=== PATIENT | female | born 1950 | race Caucasian/White ===

== ENCOUNTER 2023-07-02 09:51 | Emergency (ER) | payer MEDICARE, BC, MEDICAID ==
[~2023-07-02] VITALS: Ht 154.9 cm; Wt 79.0 kg
[2023-07-02 12:08] LABS: BASOPHILS # (AUTO) 0.2 X10'3 (0-0.2); EOSINOPHILS # (AUTO) 0.6 X10'3 (0-0.9); EOSINOPHILS % (AUTO) 6.5 % (0-6); HEMATOCRIT 35.2 % (35.0-45.0); HEMOGLOBIN 11.6 g/dl (12.0-16.0); LYMPHOCYTES # (AUTO) 1.5 X10'3 (1.1-4.8); LYMPHOCYTES % (AUTO) 17.1 % (21-51); MEAN CORPUSCULAR HEMOGLOBIN 29.3 PG (27.0-31.0); MEAN CORPUSCULAR HGB CONC 33.1 g/dL (33.0-36.5); MEAN CORPUSCULAR VOLUME 88.7 FL (78-98); MEAN PLATELET VOLUME 8.3 FL (7.4-10.4); MONOCYTES # (AUTO) 0.4 X10'3 (0-0.9); MONOCYTES % (AUTO) 4.2 % (2-12); NEUTROPHILS % (AUTO) 70.2 % (42-75); PLATELET COUNT 296 X10'3 (140-440); RED BLOOD COUNT 3.96 X10'6 (4.20-5.60); RED CELL DISTRIBUTION WIDTH 14.7 % (11.5-14.5); WHITE BLOOD COUNT 8.6 X10'3 (4.5-11.0)
[2023-07-02 12:25] LABS: ALANINE AMINOTRANSFERASE 23 U/L (12-78); ALBUMIN 3.4 G/DL (3.4-5.0); ALKALINE PHOSPHATASE 88 IU/L (46-116); ANION GAP 13 (8-16); ASPARTATE AMINO TRANSFERASE 17 U/L (10-37); BILIRUBIN,DIRECT 0.1 MG/DL (0-0.3); BILIRUBIN,TOTAL 0.3 MG/DL (0.1-1.0); BLOOD UREA NITROGEN 27 MG/DL (7-18); BUN/CREATININE RATIO 21.8 (10.0-20.0); CALCIUM 8.9 MG/DL (8.5-10.1); CHLORIDE 110 MMOL/L (99-107); CREATININE 1.24 MG/DL (0.40-0.90); GLUCOSE 143 MG/DL (70-104); MAGNESIUM 2.7 MG/DL (1.5-2.4); POTASSIUM 5.1 MMOL/L (3.5-5.1); SODIUM 145 MMOL/L (135-145); TOTAL CARBON DIOXIDE 22.3 MMOL/L (24-32); TOTAL PROTEIN 6.8 G/DL (6.4-8.2); eCRCL 32 ML/MIN; eGFR 43 ML/MIN
[2023-07-02] MEDS ORDERED: iohexol 300mg/ml 100ml inj. ONE (15:41)
[2023-07-02] MEDS ORDERED: HYDR-3965 PO (15:53)
[2023-07-02] MEDS ORDERED: CEPH-585 PO (15:53)
[2023-07-02 16:28] VITALS: BP 132/68; PULSE 78; RESP 16; TEMP 98; O2SAT 97
[2023-07-02] MEDS: CefTRIAXone 1000mg IM Kit (w/lidocaine diluent) IM ONE (16:28)
== END 2023-07-02 16:29 | disposition home or self-care (01) ==
LOC: ER 09:53
DX: S61.431D Puncture wound without foreign body of right hand, subsequent encounter (principal); Z91.041 Radiographic dye allergy status; W25.XXXD Contact with sharp glass, subsequent encounter
CPT/HCPCS: 36415; 73201; 80048; 80076; 83605; 83735; 84145; 85025; 87040; 96372; 99285; J0696; J3490; Q9967; 90471

== ENCOUNTER 2023-07-29 10:14 | Emergency (ER) | payer MEDICARE, MEDICAID ==
[~2023-07-29] VITALS: Ht 154.9 cm; Wt 78.4 kg
[~2023-07-29 10:14] MED LIST: HYDR-3965 PO
[2023-07-29 11:21] LABS: BILIRUBIN,URINE NEGATIVE (Neg); CLARITY,URINE SLIGHTLY CLOUDY (Clear); COLOR,URINE YELLOW (Yellow); GLUCOSE, URINE NEGATIVE (Neg); KETONES,URINE NEGATIVE (Neg); LEUKOCYTE ESTERASE ,URINE TRACE (Neg); NITRITES, URINE NEGATIVE (Neg); OCCULT BLOOD,URINE TRACE-INTACT (Neg); PROTEIN,URINE >=300 mg/dl (Neg); UROBILINOGEN,URINE 0.2 E.U/dL (0.2-1.0)
[2023-07-29 11:31] LABS: UA COLLECTION TYPE CLN CATCH MIDSTREAM
[2023-07-29 11:32] LABS: SQUAMOUS EPITHELIAL CELL,UR FEW /LPF (FEW)
[2023-07-29 11:33] LABS: BACTERIA,URINE FEW /HPF (Neg); RBC,URINE 0-2 /HPF (0-2)
[2023-07-29 12:26] LABS: BASOPHILS # (AUTO) 0.1 X10'3 (0-0.2); BASOPHILS % (AUTO) 0.8 % (0-1); EOSINOPHILS # (AUTO) 0.3 X10'3 (0-0.9); EOSINOPHILS % (AUTO) 3.8 % (0-6); HEMATOCRIT 36.2 % (35.0-45.0); HEMOGLOBIN 11.9 g/dl (12.0-16.0); LYMPHOCYTES # (AUTO) 1.9 X10'3 (1.1-4.8); LYMPHOCYTES % (AUTO) 22.9 % (21-51); MEAN CORPUSCULAR HGB CONC 32.8 g/dL (33.0-36.5); MEAN CORPUSCULAR VOLUME 88.6 FL (78-98); MEAN PLATELET VOLUME 8.5 FL (7.4-10.4); MONOCYTES # (AUTO) 0.4 X10'3 (0-0.9); MONOCYTES % (AUTO) 4.7 % (2-12); NEUTROPHILS # (AUTO) 5.6 X10'3 (1.8-7.7); NEUTROPHILS % (AUTO) 67.8 % (42-75); PLATELET COUNT 296 X10'3 (140-440); RED BLOOD COUNT 4.08 X10'6 (4.20-5.60); RED CELL DISTRIBUTION WIDTH 14.3 % (11.5-14.5); WHITE BLOOD COUNT 8.3 X10'3 (4.5-11.0)
[2023-07-29 12:30] LABS: ALBUMIN 3.4 G/DL (3.4-5.0); ANION GAP 5 (8-16); BLOOD UREA NITROGEN 22 MG/DL (7-18); BUN/CREATININE RATIO 18.6 (10.0-20.0); CALCIUM 8.3 MG/DL (8.5-10.1); CHLORIDE 100 MMOL/L (99-107); CREATININE 1.18 MG/DL (0.40-0.90); GLUCOSE 128 MG/DL (70-104); LIPASE 66 U/L (16-77); POTASSIUM 4.7 MMOL/L (3.5-5.1); SODIUM 132 MMOL/L (135-145); TOTAL CARBON DIOXIDE 27.2 MMOL/L (24-32); eCRCL 33 ML/MIN; eGFR 45 ML/MIN
[2023-07-29] MEDS ORDERED: ondansetron 4mg rapidly disintigrating tab PO ONE (14:10)
[2023-07-29] MEDS: normal saline 1000ML IV soln IVB ONE (14:20)
[2023-07-29] MEDS: ondansetron/PF 4mg/2ml inj IV ONE (14:22)
[2023-07-29] MEDS ORDERED: CefTRIAXone 2gm/D5W 50ml BAG 50 ML IV SCH (14:55)
[2023-07-29] MEDS: CefTRIAXone 2gm/D5W 50ml BAG 50 ML IV ONE (15:11)
[2023-07-29] MEDS: famotidine/PF 10 mg/ml inj IV ONE (15:12)
[2023-07-29] MEDS: LIDOcaine 2% Viscous 15ml cup MM PRN (15:15)
[2023-07-29] MEDS: mag hydrox/Alum hydrox/simeth 30ml oral suspension PO ONE (15:15)
[2023-07-29] MEDS: normal saline 500ml IV soln 500 ML IV SCH (15:36)
[2023-07-29] MEDS: proCHLORperazine 10 MG/2 ml inj IV ONE (15:37)
[2023-07-29] MEDS: diphenhydrAMINE 50 mg/ml inj IV ONE (15:37)
[2023-07-29] MEDS ORDERED: ONDA8TAB13 PO (16:37)
[2023-07-29] MEDS ORDERED: PANT-47 PO (16:37)
[2023-07-29] MEDS ORDERED: NITR100C6 PO (16:44)
[2023-07-29 17:12] VITALS: BP 160/88; PULSE 70; RESP 18; TEMP 98; O2SAT 96
== END 2023-07-29 17:13 | disposition home or self-care (01) ==
LOC: ER 10:15
DX: K52.9 Noninfective gastroenteritis and colitis, unspecified (principal); K29.00 Acute gastritis without bleeding; N39.0 Urinary tract infection, site not specified; Z88.1 Allergy status to other antibiotic agents
CPT/HCPCS: 36415; 74150; 80048; 81001; 83690; 85025; 87088; 96361; 96365; 96366; 96375; 99285; J0696; J0780; J1200; J2405; J3490; J7030; J7040